=== PATIENT | female | born 1995 | race Two or more races ===

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

== ENCOUNTER 2019-05-05 06:14 | Emergency (ER) | payer MEDICAID, OTHER ==
[~2019-05-05] VITALS: Ht 170.2 cm; Wt 68.8 kg
[~2019-05-05 06:14] MED LIST changes: +IBUP-1222 PO
--- NOTE | 2019-05-05 07:05 | NUR ---
REPORT RECIEVED FROM LOIDA RN, PT RESTING ON ANAYA AT THIS TIME, NAD NOTED. DISCUSSED POC.
[2019-05-05 07:28] VITALS: BP 121/73
--- NOTE | 2019-05-05 07:29 | NUR ---
PT ANXIOUS TO DC, HAS TO TAKE BABY TO S[employer].. WILL UPDATE PROVIDER
== END 2019-05-05 08:30 | disposition home or self-care (01) ==
LOC: ED 06:41
DX: J06.9 Acute upper respiratory infection, unspecified (principal)
CPT/HCPCS: 71046; 99283

== ENCOUNTER 2019-10-11 19:53 | Emergency (ER) | payer MEDICAID ==
[~2019-10-11] VITALS: Ht 170.2 cm; Wt 71.6 kg
[2019-10-11 20:01] VITALS: BP 115/66
--- NOTE | 2019-10-11 21:34 | NUR ---
PT CALLED FOR US, [id number]
--- NOTE | 2019-10-11 21:43 | NUR ---
[id number]
--- NOTE | 2019-10-11 21:54 | NUR ---
PT NOT IN LOBBY X3 LWBS
== END 2019-10-11 21:55 | disposition left against medical advice (07) ==
LOC: ED 21:50
DX: O26.891 Other specified pregnancy related conditions, first trimester (principal); F15.10 Other stimulant abuse, uncomplicated; Z3A.01 Less than 8 weeks gestation of pregnancy
CPT/HCPCS: 99281

== ENCOUNTER 2020-06-11 14:07 | Inpatient (IN) | payer BC, MEDICAID ==
[~2020-06-11] VITALS: Ht 170.2 cm; Wt 88.6 kg
[2020-06-11] MEDS ORDERED: OXYTOCIN 30U/ 0.9% NaCL 500ML 500 ML ONE ×2 (14:28→16:06)
[2020-06-11] MEDS ORDERED: LIDOCAINE 1%, 20ML ONE (14:28)
[2020-06-11] MEDS ORDERED: MISOPROSTOL 200 MCG TABLET ONE (14:28)
[2020-06-11] MEDS ORDERED: NEWBORN KIT ONE (14:28)
[2020-06-11] MEDS ORDERED: OXYTOCIN 30U/ 0.9% NaCL 500ML 500 ML IV ONE (14:30)
[2020-06-11] MEDS ORDERED: SODIUM CITRATE/CITRIC ACID 30 ML UDC PO PRN (14:30)
[2020-06-11] MEDS ORDERED: LACTATED RINGERS 1,000 ML IV SCH (14:30)
[2020-06-11] MEDS ORDERED: ONDANSETRON 2MG/ML, 2ML IVPush PRN (14:30)
[2020-06-11] MEDS ORDERED: FENTANYL PF 100 MCG/2ML IVPush PRN (14:30)
[2020-06-11] MEDS ORDERED: TERBUTALINE 1 MG/ML, 1ML SQ PRN (14:30)
[2020-06-11] MEDS ORDERED: D5%-LACTATED RINGERS 1,000 ML IV SCH (14:30)
[2020-06-11] MEDS ORDERED: FENTANYL PF 100 MCG/2ML IV PRN (14:30)
[2020-06-11] MEDS ORDERED: TERBUTALINE 1 MG/ML, 1ML IVPush PRN (14:30)
[2020-06-11] MEDS ORDERED: METOCLOPRAMIDE 5 MG/ML, 2ML IVPush PRN (14:30)
[2020-06-11 14:53] LABS: AMPHETAMINE SCREEN, URINE Negative (Negative); BARBITURATE SCREEN, URINE Negative (Negative); BENZODIAZEPINE SCREEN, URINE Negative (Negative); CANNABINOID SCREEN, URINE Negative (Negative); COCAINE SCREEN, URINE Negative (Negative); METHADONE SCREEN, URINE Negative (Negative); OPIATE SCREEN, URINE Negative (Negative)
[2020-06-11] MEDS ORDERED: METHYLERGONOVINE 0.2 MG/ML IM PRN (15:30)
[2020-06-11] MEDS ORDERED: DOCUSATE 100 MG CAPSULE PO PRN (15:30)
[2020-06-11] MEDS ORDERED: HYDROcodone/APAP 5/325 TABLET PO PRN ×2 (15:30)
[2020-06-11] MEDS ORDERED: MISOPROSTOL 200 MCG TABLET PR PRN (15:30)
[2020-06-11] MEDS ORDERED: ONDANSETRON 2MG/ML, 2ML IV PRN (15:30)
[2020-06-11] MEDS ORDERED: SIMETHICONE 80 MG CHEW TAB PO PRN (15:30)
[2020-06-11 15:33] VITALS: BP 126/58
[2020-06-11] MEDS ORDERED: IBUPROFEN 600 MG TABLET ONE (16:06)
[2020-06-11] MEDS: OXYTOCIN 30U/ 0.9% NaCL 500ML 500 ML IV SCH (16:40)
[2020-06-11] MEDS: IBUPROFEN 600 MG TABLET PO PRN (16:41)
[2020-06-11 17:15] VITALS: BP 109/69
[2020-06-11 20:00] VITALS: BP 119/72
[2020-06-11 23:45] VITALS: BP 105/59
[2020-06-11 23:53] LABS: BASOPHILS % (AUTO) 0 % (0-1); EOSINOPHILS % (AUTO) 1 % (1-7); LYMPHOCYTES % (AUTO) 12 % (22-44); MEAN CORPUSCULAR HGB CONC 32.1 g/dL (32.4-35.8); MEAN PLATELET VOLUME 11.2 fL (7.4-10.4); MONOCYTES % (AUTO) 7 % (2-9); NEUTROPHILS % (AUTO) 80 % (42-75); PLATELET COUNT 144 x10^3/uL (130-400); RED BLOOD COUNT 4.33 x10^6/uL (3.82-5.3); RED CELL DISTRIBUTION WIDTH 15.3 % (9.6-15.2)
[2020-06-11 23:57] LABS: MD NO
[2020-06-12] MEDS: OXYTOCIN 30U/ 0.9% NaCL 500ML 500 ML IV SCH ×2 (01:30→11:30)
[2020-06-12 04:22] VITALS: BP 100/59
[2020-06-12 07:58] VITALS: BP 111/69
[2020-06-12] MEDS ORDERED: PRENATAL VIT/IRON/FA 1 EACH TABLET PO SCH (09:00)
[2020-06-12 12:55] VITALS: BP 102/55
[2020-06-12] MEDS: IBUPROFEN 600 MG TABLET PO PRN (18:19)
== END 2020-06-12 18:46 | disposition home or self-care (01) | DRG 807 ==
LOC: LDOP 14:07 → LDIP 14:21 → 2NW 17:09
PROVIDERS: ADMIT Obstetrics & Gynecology; ATTEND Obstetrics & Gynecology
PROC: 10E0XZZ Delivery of Products of Conception, External Approach (ICD-10-PCS; principal; 2020-06-11)
PROC: 10907ZC Drainage of Amniotic Fluid, Therapeutic from Products of Conception, Via Natural or Artificial Opening (ICD-10-PCS; 2020-06-11)
DX: O80 Encounter for full-term uncomplicated delivery (principal); Z37.0 Single live birth; Z20.828 Contact with and (suspected) exposure to other viral communicable diseases; Z3A.38 38 weeks gestation of pregnancy
CPT/HCPCS: 36415; 80307; 85025; 86592; 86850; 86900; 87635; G0378; J2590; J7120